=== PATIENT | female | born 1940 | race Caucasian/White ===

== ENCOUNTER → 2019-08-26 | Day surgery (SDC) | payer OTHER, BC ==
--- NOTE | 2019-08-31 12:05 | PATH ---
Surgical Pathology Report Patient Name: VICK REYES [facility]. Rec. #: [id number] /Age/Gender: 1940 (Age: 79) / F Account: [id number] Location: [facility] Taken: 08/26/2019 Received: 08/26/2019 Reported: 08/31/2019 Physicians: Nelson Bender M.D. Specimen(s) Received A: LEFT BREAST SPECIMEN WITH CALCIFICATIONS B: LEFT BREAST SPECIMEN WITHOUT CALCIFICATIONS Clinical History Nonpalpable lesion Postoperative diagnosis: Microcalcification, suspicious Final Diagnosis A. BREAST, LEFT, WITH CALCIFICATIONS, STEREOTACTIC BIOPSY: BENIGN PREDOMINANTLY FIBROFATTY TISSUE AND SCANT GLANDULAR BREAST PARENCHYMA WITH RARE ASSOCIATED CALCIFICATIONS. (SEE NOTE). Note: Multiple serial sections/levels were examined. B. BREAST, LEFT, WITHOUT CALCIFICATIONS, STEREOTACTIC BIOPSY: BENIGN PREDOMINANTLY FATTY BREAST TISSUE. Electronically Signed Norah Bonilla M.D. Gross Description A. Received in formalin labeled "left breast with calcifications," is a 1.8 x 1.5 x 0.3 cm aggregate of donovan-yellow, irregular to cylindrical portions of fibroadipose tissue. The formalin is filtered and the specimen is entirely submitted in one cassette. B. Received in formalin labeled "left breast without calcifications," is a 1.2 x 1.1 x 0.3 cm aggregate of donovan-yellow, irregular to cylindrical portions of fibroadipose tissue. The formalin is filtered and the specimen is entirely submitted in one cassette. Time to formalin fixation: 5 minutes Total formalin fixation time: Approximately 7 hours. 08/26/2019 [facility]08/26/2019
== END | disposition home or self-care (01) ==
LOC: FMAMMOTONE 09:50
PROVIDERS: ATTEND Surgery Surgical Oncology
PROC: 0HBU3ZX Excision of Left Breast, Percutaneous Approach, Diagnostic (ICD-10-PCS; principal; 2019-08-26)
DX: N64.89 Other specified disorders of breast (principal); R92.1 Mammographic calcification found on diagnostic imaging of breast
CPT/HCPCS: 19081; 87899; 88305-TC; A4648